=== PATIENT | female | born 1955 | race Caucasian/White ===

== ENCOUNTER 2025-07-21 06:25 | Day surgery (SDC) | payer OTHER, SELFPAY | END 2025-07-21 12:39 | disposition home or self-care (01) | LOC: GI 06:25 | PROVIDERS: ATTENDING PHYSICIAN Internal Medicine Gastroenterology; FAMILY PHYSICIAN Family Medicine | DX: Z12.11 Encounter for screening for malignant neoplasm of colon (principal); D12.3 Benign neoplasm of transverse colon; Z86.0100 Personal history of colon polyps, unspecified | CPT/HCPCS: 45385; 88305 ==